=== PATIENT | female | born 1955 | race Caucasian/White ===

== ENCOUNTER → 2016-08-14 | Outpatient (CLI) | payer BC ==
[~2016-08-14] MED LIST: ASPIRIN81 M1 PO; ASPIRIN81 M2 PO; AVANDIA PO; BUTRANS1 EAC2 TD; CARAFATE1 G PO; CARAFATE1 GM PO; CENTRUM PO; CIPRO PO; CREON DR 24,001 EACH PO; DEPAKOTE PO; DEXILANT60 MG PO; EDLUAR10 MG SL; EFFEXOR PO; EFFEXOR-XR150 MG PO; EFFEXOR75 M2 PO; ERY-TAB333 M1 PO; ESTRADIOL0.5 MG PO; EVOXAC30 MG PO; FENOFIBRATE134 MG PO; GLUCOVANCE 5/501 TA1 PO; HUMULIN INSULIN; HYDROCHLOROTHIA25 MG PO; KLONOPIN0.5 MG PO; LEVEMIR SUBQ; LEVEMIR100 UNITS/ SUBQ; LEXAPRO PO; LORTAB 10-5001 EACH; LYRICA300 MG PO; MAGNESIUM500 MG PO; MIMVEY 1-0.5 M1 EACH PO; MIRTAZAPINE7.5 MG PO; NEXIUM PO; NIASPAN PO; NORCO 10/3251 TAB PO; NORVASC PO; NOVOLOG100 U/ML SUBQ; ONDANSETRON ODT4 MG PO; PERCOCET 51 UDTAB 5/ PO; PERCOCET5/325 PO; PHENERGAN PO; PHENERGAN25 M1 PO; PREMARIN0.3 MG PO; PROZAC PO; REGLAN PO; REMERON15 MG PO; REQUIP0.25 MG PO; SEROQUEL XR150 MG PO; TRANXENE PO; TRICOR134 MG PO; TRILIPIX135 MG PO; VITAMIN D250000 UNIT PO; VITAMIN D50000 UNIT PO; ZENPEP DR 10,01 EACH PO; ZOFRAN PO; ZOFRAN8 MG PO
--- NOTE | ~2016-08-14 | MY26 ---
[facility] A Service [facility] RADIOLOGY TEXT RESULTS PATIENT: MINERVA GARZA LOCATION: [facility] : 57 UNIT #: [id number] AGE: [address]: Magalie Contreras MD SEX: F ORDER DR: [id number] [facility] [address] [place], [place] [address] [id number] O MR#: [id number] Acc #: [id number] NAME: MINERVA GARZA : 1955 SEX: F STUDY DATE/TIME: 08/14/2016 11:37 UNIT: [facility] ROOM: STUDY DESCRIPTION: [facility] DIAGNOSTIC W/ CAD BILAT Attending Physician: Magalie Contreras M.D. Ordering Physician: Magalie Contreras M.D. Primary Care Physician: Magalie Contreras M.D. MEDICAL IMAGING REPORT This report is preliminary unless electronic signature is present EXAM Diagnostic mammogram, 08/14 HISTORY Bilateral breast pain in the upper outer quadrants for about 2 months. No trauma. COMPARISON STUDIES 02/04/2014, 12/25/2012. TECHNIQUE CC, MLO, ML views of both breasts were obtained. Study is reviewed with a FDA-approved CAD device. FINDINGS Breast parenchyma shows scattered fibroglandular densities. No new masses or suspicious microcalcifications are identified. Two small benign intramammary lymph nodes in the upper outer left breast are mammographically stable. Ultrasound was performed in the area of pain in both breasts, in the upper outer quadrants. Ultrasound is normal, except for a small 5 mm lymph node at the 2 o'clock position on the left which corresponds to 1 of the mammographic nodes. Results were discussed with the patient at the time of her examination today. IMPRESSION Benign bilateral mammogram with negative targeted bilateral breast ultrasound. Continued clinical follow up of patient's breast pain is recommended. Routine yearly mammographic screening is recommended. BIRADS: 2 Benign Finding. [facility] A Service [facility] RADIOLOGY TEXT RESULTS PATIENT: MINERVA GARZA LOCATION: [facility] : 57 UNIT #: [id number] AGE: [address]: Magalie Contreras MD SEX: F ORDER DR: Patients over the age of 40 are entered into a reminder system with target due date for the next mammogram. A result letter will also be sent to the patient. Dictated by... Mike Nagy Jr., M.D. THIS IS AN ELECTRONICALLY VERIFIED REPORT Mike Nagy Jr., M.D. at 08/16/2016 7:18 AM LONG/kaylynn TD: 08/14/2016 16:57 JOB #: [id number] MEDICAL IMAGING REPORT Page 1 of 1 COPY
--- NOTE | ~2016-08-14 | US17 ---
[facility] A Service of [facility] RADIOLOGY TEXT RESULTS PATIENT: MINERVA GARZA LOCATION: [facility] : 57 UNIT #: [id number] AGE: [address]: Magalie Contreras MD SEX: F ORDER DR: [id number] [facility] [address] [place], [place] [address] [id number] O MR#: [id number] Acc #: [id number] NAME: MINERVA GARZA : 1955 SEX: F STUDY DATE/TIME: 08/14/2016 12:03 UNIT: [facility] ROOM: STUDY DESCRIPTION: US Breast Bilateral Attending Physician: Magalie Contreras M.D. Ordering Physician: Magalie Contreras M.D. Primary Care Physician: Magalie Contreras M.D. MEDICAL IMAGING REPORT This report is preliminary unless electronic signature is present EXAM Bilateral breast ultrasound 08/14 INDICATIONS Bilateral breast pain for 2 months. FINDINGS For a full report, please see the mammogram report dated 08/14/2016. BIRADS: 2 Benign findings. Dictated by... Mike Nagy Jr., M.D. THIS IS AN ELECTRONICALLY VERIFIED REPORT Mike Nagy Jr., M.D. at 08/16/2016 7:18 AM RLK/vish TD: 08/14/2016 17:29 JOB #: [id number] MEDICAL IMAGING REPORT Page 1 of 1 COPY
== END | disposition home or self-care (01) ==
LOC: CMAM 11:20 → CWCC 11:30
DX: N64.4 Mastodynia (principal)
CPT/HCPCS: 76641; G0204